=== PATIENT | female | born 1995 | race Caucasian/White ===

== ENCOUNTER 2018-05-08 22:15 | Emergency (ER) | payer BC ==
[2018-05-09] MEDS ORDERED: ACETAMINOPHEN 325 MG TABLET PO ONE (01:01)
[2018-05-09 01:21] LABS: ABSOLUTE BASOPHILS # (AUTO) 0.1 10^3/uL (0.0-0.2); ABSOLUTE EOSINOPHILS # (AUTO) 0.1 10^3/uL (0.0-0.6); ABSOLUTE LYMPHOCYTES (AUTO) 1.4 10^3/uL (0.5-4.7); EOSINOPHILS % (AUTO) 0.6 % (0-6); HEMATOCRIT 28.5 % (36.0-47.0); HEMOGLOBIN 9.9 g/dL (12.0-15.5); LYMPHOCYTES % (AUTO) 11.9 % (13-45); MEAN CORPUSCULAR HEMOGLOBIN 32.6 pg (27.0-33.4); MEAN CORPUSCULAR HGB CONC 34.7 g/dL (32.0-36.0); MEAN CORPUSCULAR VOLUME 94 fl (80-97); MONOCYTES % (AUTO) 8.4 % (3-13); PLATELET COUNT 199 10^3/uL (150-450); RED BLOOD COUNT 3.04 10^6/uL (3.72-5.28); RED CELL DISTRIBUTION WIDTH 14.1 % (11.5-14.0); SEGMENTED NEUTROPHILS % (AUTO) 78.1 % (42-78); TOTAL CELLS COUNTED % (AUTO) 100 %; WHITE BLOOD COUNT 11.5 10^3/uL (4.0-10.5)
--- NOTE | 2018-05-09 01:32 | ER Document Report ---
ED General - General Chief Complaint: Rib Pain Stated Complaint: SHORTNESS OF BREATH Time Seen by Provider: 05/09/18 00:42 Primary Care Provider: ARYA VIERA MD [Primary Care Provider] - Follow up as needed Notes: Patient is a 22-year-old female, at 30 weeks gestation, that comes to the emergency department for chief complaint of left-sided rib pain. She states that this is been present for about 3 days, has not resolved, is worse with deep breath and with leaning forward/sitting up. Denies that this is worse with movement of the left arm. Denies shortness of breath, fever/chills, nausea/vomiting. She denies trauma to the area. She denies any daily medications or diagnosed medical problems. [facility] is [facility] with [facility]. TRAVEL OUTSIDE OF THE [place] IN LAST 30 DAYS: No - Related Data Allergies/Adverse Reactions: No Known Allergies Allergy (Unverified 05/08/18 22:24) Past Medical History - General Information source: Patient - Social History Smoking Status: Never Smoker Frequency of alcohol use: None Drug Abuse: None Lives with: Family Family History: Reviewed & Not Pertinent - Medical History Medical History: Negative Surgical Hx: Negative - Immunizations Immunizations up to date: Yes Hx Diphtheria, Pertussis, Tetanus Vaccination: Yes Review of Systems - Review of Systems Constitutional: No symptoms reported EENT: No symptoms reported Cardiovascular: No symptoms reported Respiratory: See HPI Gastrointestinal: No symptoms reported Genitourinary: No symptoms reported Female Genitourinary: No symptoms reported Musculoskeletal: See HPI Skin: No symptoms reported Hematologic/Lymphatic: No symptoms reported Neurological/Psychological: No symptoms reported Physical Exam - Vital signs Vitals: Temp Pulse Resp BP Pulse Ox 98.4 F 102 H 18 114/65 99 05/08/18 22:53 05/08/18 22:53 05/08/18 22:53 05/08/18 22:53 05/08/18 22:53 - Notes Notes: GENERAL: Alert, interacts well. No acute distress. HEAD: Normocephalic, atraumatic. EYES: Pupils equal, round, and reactive to light. Extraocular movements intact. ENT: Oral mucosa moist, tongue midline. Oropharynx unremarkable. Airway patent. Nares patent, no nasal septal hematoma, TM's intact. NECK: Full range of motion. Supple. Trachea midline. LUNGS: Clear to auscultation bilaterally, no wheezes, rales, or rhonchi. No respiratory distress. There is tenderness to palpation over the left lower rib area, this is reproducible. No erythema, ecchymosis, swelling, crepitus over the area. Tenderness is very mild. HEART: Regular rate and rhythm. No murmur ABDOMEN: Borderline minimal tenderness in the left upper quadrant on palpation. Gravid abdomen. Mid to lower abdomen completely nontender and benign. Non- distended. Bowel sounds present in all 4 quadrants. GENITOURINARY: Deferred EXTREMITIES: Moves all 4 extremities spontaneously. No edema, normal radial and dorsalis pedis pulses bilaterally. No cyanosis. BACK: no cervical, thoracic, lumbar midline tenderness. No saddle anesthesia, normal distal neurovascular exam. NEUROLOGICAL: Alert and oriented x3. Normal speech. [cranial nerves II through XII grossly intact]. PSYCH: Normal affect, normal mood. SKIN: Warm, dry, normal turgor. No rashes or lesions noted. Course - Re-evaluation Re-evalutation: Patient has some pain with palpation of the left lower ribs which is mild but reproducible, she also has some pain just under the rib in the left upper quadrant. Chemistry performed including lipase but this was unremarkable. X- ray was performed but this was also unremarkable. CBC shows borderline leukocytosis, some anemia, patient states the anemia is not new. Leukocytosis nonspecific because patient does not exhibit any infectious etiology. Vital signs unremarkable, she is not tachycardic on my exam. Because of her status, location of pain, I did discuss possible blood clot and even CTA, however after discussion this was deferred. This is because she does not have shortness of breath, she was sleeping and easily aroused on reexamination, she is not tachycardic, she is not a smoker, she has no lower extremity swelling, and she does not want the radiation. I feel this is appropriate, based on her physical exam this appears to be partially muscular, possibly also gastritis. Low suspicion of pulmonary embolism. Discussed in details and return precautions at length with patient and significant other. They state satisfaction and agreement. Stable at time of discharge. - Vital Signs Vital signs: Temp Pulse Resp BP Pulse Ox 98.3 F 98 17 103/55 L 100 05/09/18 03:25 05/09/18 03:25 05/09/18 03:25 05/09/18 03:25 05/09/18 03:25 - Laboratory Result Diagrams: 05/09/18 01:10 05/09/18 01:10 Laboratory results interpreted by me: 05/09/18 05/09/18 01:10 01:10 WBC 11.5 H RBC 3.04 L Hgb 9.9 L Hct 28.5 L RDW 14.1 H Seg Neutrophils % 78.1 H Lymphocytes % 11.9 L Absolute Neutrophils 9.0 H Sodium 134.9 L BUN 5 L Creatinine 0.36 L Albumin 3.4 L Discharge - Discharge Clinical Impression: Rib pain on left side, Left upper quadrant pain Condition: Stable Disposition: HOME, SELF-CARE Additional Instructions: Your x-ray and laboratory workup are reassuring. It appears to be some soreness along the muscles in between your ribs, could also be some inflammation of the upper gastrointestinal tract, I recommend that you apply heat over the painful area of your ribs several times a day, take the famotidine as prescribed, avoid heavy lifting and twisting. Follow-up with primary care. Return if you worsen including difficulty breathing, passing out, vomiting, severe worsening pain, fever, or any other concerning or worsening symptoms. Prescriptions: Famotidine [Pepcid 20 mg Tablet] 20 mg PO BID #12 tablet Referrals: ARYA VIERA MD [Primary Care Provider] - Follow up as needed
[2018-05-09 01:38] LABS: ALANINE AMINOTRANSFERASE 21 U/L (9-52); ALBUMIN 3.4 g/dL (3.5-5.0); ALKALINE PHOSPHATASE 80 U/L (38-126); ANION GAP 7 (5-19); ASPARTATE AMINO TRANSFERASE 19 U/L (14-36); BILIRUBIN,TOTAL 0.4 mg/dL (0.2-1.3); BLOOD UREA NITROGEN 5 mg/dL (7-20); CARBON DIOXIDE 23 mmol/L (22-30); CHLORIDE 105 mmol/L (98-107); GLUCOSE 82 mg/dL (75-110); LIPASE 28.3 U/L (23-300); POTASSIUM 3.6 mmol/L (3.6-5.0); SODIUM 134.9 mmol/L (137-145); TOTAL PROTEIN 6.3 g/dL (6.3-8.2)
--- NOTE | 2018-05-09 02:01 | RADIOLOGY REPORT (SQ) ---
EXAM DESCRIPTION: XR CHEST 2 VIEWS COMPLETED DATE/TME: 05/09/2018 01:00 CLINICAL HISTORY: 22 years, Female, left lower rib pain (use shield) Comparison: None FINDINGS: No focal lung consolidation. No pleural effusion. No pneumothorax. Cardiac and mediastinal silhouette is unremarkable. No acute osseous abnormality. Soft tissues are unremarkable. IMPRESSION: No acute findings. No focal lung consolidation.
[2018-05-09] MEDS ORDERED: FAMOTIDINE 20 MG TABLET PO ONE (02:58)
[2018-05-09 03:25] VITALS: BP 103/55
== END 2018-05-09 03:33 | disposition home or self-care (01) ==
LOC: ER 22:15
DX: R07.81 Pleurodynia (principal); R10.12 Left upper quadrant pain; R06.02 Shortness of breath
CPT/HCPCS: 36415; 71046; 80053; 83690; 85025; 99283

== ENCOUNTER 2018-07-24 01:01 | Inpatient (IN) | payer BC, OTHER ==
[2018-07-24] MEDS ORDERED: DINOPROSTONE 10 MG VAGINAL INSERT.SR PV PRN (01:43)
[2018-07-24] MEDS ORDERED: RINGERS SOLUTION,LACTATED 1,000 ML IV PRN (01:43)
[2018-07-24] MEDS ORDERED: OXYTOCIN/NORMAL SALINE 20 UNIT/1,000 ML RTUINJ IV PRN (01:43)
[2018-07-24] MEDS ORDERED: RINGERS SOLUTION,LACTATED 300 ML IV ONE (01:43)
[2018-07-24] MEDS ORDERED: PENICILLIN G POTASSIUM 5,000,000 UNIT in DEXTROSE 5%-WATER 100 ML IV ONE (01:45)
[2018-07-24 02:06] LABS: APPEARANCE,URINE SLIGHTLY-CLOUDY; BILIRUBIN,URINE NEGATIVE (NEGATIVE); COLOR,URINE YELLOW; GLUCOSE, URINE NEGATIVE (NEGATIVE); KETONES,URINE NEGATIVE (NEGATIVE); LEUKOCYTE ESTERASE,URINE TRACE (NEGATIVE); NITRITE,URINE NEGATIVE (NEGATIVE); PROTEIN,URINE NEGATIVE (NEGATIVE); URINE SPECIFIC GRAVITY 1.023; UROBILINOGEN,URINE NEGATIVE mg/dL (<2.0)
[2018-07-24] MEDS ORDERED: DINOPROSTONE 10 MG VAGINAL INSERT.SR ONE (02:06)
[2018-07-24 02:07] LABS: ABSOLUTE EOSINOPHILS # (AUTO) 0.1 10^3/uL (0.0-0.6); ABSOLUTE LYMPHOCYTES (AUTO) 1.5 10^3/uL (0.5-4.7); ABSOLUTE MONOCYTES (AUTO) 0.9 10^3/uL (0.1-1.4); ABSOLUTE NEUT (AUTO) 6.5 10^3/uL (1.7-8.2); BASOPHILS % (AUTO) 0.5 % (0-2); EOSINOPHILS % (AUTO) 0.9 % (0-6); HEMATOCRIT 30.2 % (36.0-47.0); HEMOGLOBIN 10.1 g/dL (12.0-15.5); LYMPHOCYTES % (AUTO) 16.4 % (13-45); MEAN CORPUSCULAR HEMOGLOBIN 28.5 pg (27.0-33.4); MEAN CORPUSCULAR HGB CONC 33.4 g/dL (32.0-36.0); MEAN CORPUSCULAR VOLUME 85 fl (80-97); MONOCYTES % (AUTO) 10.4 % (3-13); PLATELET COUNT 211 10^3/uL (150-450); RED BLOOD COUNT 3.54 10^6/uL (3.72-5.28); RED CELL DISTRIBUTION WIDTH 16.5 % (11.5-14.0); SEGMENTED NEUTROPHILS % (AUTO) 71.8 % (42-78); TOTAL CELLS COUNTED % (AUTO) 100 %
[2018-07-24 02:22] LABS: URINE AMPHETAMINES SCREEN NEGATIVE; URINE BARBITURATES SCREEN NEGATIVE; URINE BENZODIAZEPINES SCREEN NEGATIVE; URINE COCAINE SCREEN NEGATIVE; URINE MARIJUANA (THC) SCREEN NEGATIVE; URINE METHADONE SCREEN NEGATIVE; URINE PHENCYCLIDINE SCREEN NEGATIVE
[2018-07-24] MEDS ORDERED: PENICILLIN G POTASSIUM 2,500,000 UNIT in DEXTROSE 5%-WATER 50 ML IV SCH (05:47)
[2018-07-24] MEDS ORDERED: LIDOCAINE 1% INJ-PF (10 MG/ML) 30 ML SDV ONE (06:17)
[2018-07-24] MEDS ORDERED: MISOPROSTOL 0.2 MG TABLET ONE (06:17)
[2018-07-24] MEDS ORDERED: OXYTOCIN 10 UNIT/ML VIAL ONE (06:17)
[2018-07-24] MEDS ORDERED: OXYTOCIN/NORMAL SALINE 20 UNIT/1,000 ML RTUINJ ONE ×2 (06:17→14:48)
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
[2018-07-24] MEDS ORDERED: BUPIVACAINE HCL 0.25 % INJ/PF (2.5 MG/1 ML) 30 ML VIAL ONE (16:08)
[2018-07-24] MEDS ORDERED: EPHEDRINE SULFATE INJ 50 MG/1 ML AMPULE ONE (16:08)
[2018-07-24] MEDS ORDERED: FENTANYL/BUPIVACAINE/NS/PF 300 MCG/150 ML RTUINJ EPI ONE (16:08)
[2018-07-24] MEDS ORDERED: PENICILLIN G-K 5 MILLION UNIT VIAL ONE ×2 (18:24→23:24)
[2018-07-24] MEDS ORDERED: DIPHENHYDRAMINE HCL 50 MG/ML VIAL IV ONE (20:10)
[2018-07-24] MEDS ORDERED: DIPHENHYDRAMINE HCL 50 MG/ML VIAL ONE (20:12)
[2018-07-24] MEDS ORDERED: ACETAMINOPHEN 325 MG TABLET ONE (23:23)
[2018-07-25] MEDS ORDERED: DIBUCAINE 1% OINTMENT 56 GM TP PRN (04:15)
[2018-07-25] MEDS ORDERED: DIPH/PERTUSS(ACELL)/TETANUS VAC/PF 0.5 ML SYR (>=10YO) IM PRN (04:15)
[2018-07-25] MEDS ORDERED: GLYCERIN/WITCH HAZEL LEAF 1 EACH MED..WIPE TP PRN (04:15)
[2018-07-25] MEDS ORDERED: DIPHENHYDRAMINE HCL 25 MG CAPSULE PO PRN (04:15)
[2018-07-25] MEDS ORDERED: MAGNESIUM HYDROXIDE SUSP 30 ML UDCUP PO PRN (04:15)
[2018-07-25] MEDS ORDERED: ACETAMINOPHEN 650 MG SUPP.RECT PR PRN (04:15)
[2018-07-25] MEDS ORDERED: MEASLES,MUMPS&RUBELLA VACC/PF 0.5 ML VIAL SUBCUT PRN (04:15)
[2018-07-25] MEDS ORDERED: ZOLPIDEM TARTRATE 5 MG TABLET PO PRN (04:15)
[2018-07-25] MEDS ORDERED: PROMETHAZINE HCL INJ 25 MG/1 ML VIAL IV PRN (04:15)
[2018-07-25] MEDS ORDERED: OXYTOCIN/NORMAL SALINE 20 UNIT/1,000 ML RTUINJ IV PRN (04:15)
[2018-07-25] MEDS ORDERED: PROMETHAZINE HCL 25 MG TABLET PO PRN (04:15)
[2018-07-25] MEDS ORDERED: NA PHOS,M-B/NA PHOS,DI-BA (ADULT) 133 ML ENEMA PR PRN (04:15)
[2018-07-25] MEDS ORDERED: BENZOCAINE/MENTHOL AEROSOL SPRAY 56 ML TOP PRN (04:15)
[2018-07-25] MEDS ORDERED: PROMETHAZINE HCL 25 MG SUPP.RECT PR PRN (04:15)
[2018-07-25] MEDS ORDERED: PSEUDOEPHEDRINE HCL 30 MG TABLET PO PRN (04:15)
--- NOTE | 2018-07-25 04:55 | Warning Signs in Babies ---
VOD Warning Signs Datetime Report Generated by [facility]: 07/25/2018 04:54 VOD#608 -Warning Signs in Babies: Needs to be viewed. (07/24/2018 00:41:Dahiana Ohara RN)
--- NOTE | 2018-07-25 04:55 | Delivery Summary ---
Del Sum A-C Datetime Report Generated by CPN: 07/25/2018 04:54 DELIVERY PERSONNEL DELIVERY PERSONNEL: [id number] Delivery Doctor:: Hosea Jacome MD Labor and Delivery Nurse:: Dahiana Ohara RNadvertising inserter Nurse:: Ann Cole RN Nursery Nurse:: Salena Malave RN Environmental Service Aide/TRAFFIC ENGINEERING DIRECTOR: Milagros Green, ST MATERNAL INFORMATION Delivery Anesthesia: Epidural Medications After Delivery: Pitocin Bolus-Please Comment Maternal Complications: None LABOR SUMMARY EDC: 07/17/2018 00:00 No. Babies in Womb: 1 Attempted: No Labor Anesthesia: Epidural LABOR INFORMATION Reason for Induction: Macrosomia; Polyhydramnios Onset of Labor: 07/24/2018 15:30 Complete Dilatation: 07/24/2018 22:09 Cervical Ripening Agents: Cervidil Oxytocin: Induction Group B Beta Strep: positive Antibiotics # of Doses: 2 Antibiotics Time of Last Dose: 233 Name of Antibiotic Given: Penicillin Steroids Given: None Reason Steroids Not Administered: Not Applicable MEMBRANES Membranes Rupture Method: Spontaneous Rupture of Membranes: 07/24/2018 12:30 Length of Rupture (hr): 15.50 Amniotic Fluid Color: Clear Amniotic Fluid Amount: Copious Amniotic Fluid Odor: Normal STAGES OF LABOR Stage 1 hr: 6 Stage 1 min: 39 Stage 2 hr: 5 Stage 2 min: 51 Stage 3 hr: 0 Stage 3 min: 6 Total Time in Labor hr: 12 Total Time in Labor min: 36 VAGINAL DELIVERY Episiotomy: None Laceration #1: Perineal Laceration Extension #1: First Degree Laceration Repair: Yes Laceration Repair Note: 2-0 vicryl BABY A INFORMATION Delivery Date/Time: 07/25/2018 04:00 Method of Delivery: Vaginal Born in Route : No : N/A Forceps: N/A Vacuum Extraction: N/A Shoulder Dystocia : No PRESENTATION/POSITION BABY A Presentation: Cephalic Cephalic Presentation: Vertex Vertex Position: Left Occipital Anterior Breech Presentation: N/A PLACENTA INFORMATION BABY A Placenta Delivery Time : 07/25/2018 04:06 Placenta Method of Delivery: Spontaneous Placenta Status: Delivered SCORES BABY A Heart Rate 1 min: >100 bpm Resp Effort 1 min: Good Cry Reflex Irritability 1 min: Cough or Sneeze or Pulls Away Muscle Tone 1 min: Active Motion Color 1 min: Body [place], Extremities Blue SCORE 1 MIN: 9 Heart Rate 5 min: >100 bpm Resp Effort 5 min: Good Cry Reflex Irritability 5 min: Cough or Sneeze or Pulls Away Muscle Tone 5 min: Active Motion Color 5 min: Body [place], Extremities Blue SCORE 5 MIN: 9 INFANT INFORMATION BABY A Gestational Age at Delivery: 41.1 Gestational Status: Late Term- 41- 41.6 Weeks Infant Outcome : Liveborn Condition : Stable Infant Sex: Male IDENTIFICATION BABY A Infant Verification Date/Time: 07/25/2018 04:09 ID Band Number: [id number] Mother's Name Verified: Yes RN Verifying Infant: DevonHarlan RN Additional Verifying Personnel: Edgard Sanders ST WEIGHT/LENGTH BABY A Birthweight (gm): 4316 Weight (lb): 9 Weight (oz): 8 Length (in): 22.00 Length (cm): 55.88 CORD INFORMATION BABY A No. Cord Vessels: 3 Nuchal Cord : Around Neck x1, Loose Cord Blood Taken: Yes-For Storage (Mom's Blood type +) ASSESSMENT BABY A Infant Complications: None Physical Findings at Delivery: Within Normal Limits Skin to Skin: Yes Transferred To: Remains with Mother BABY B INFORMATION : N/A SIGNATURES Signature: with User ID: [email or web address]
[2018-07-25] MEDS: FAMOTIDINE 20 MG TABLET PO SCH ×2 (09:26→21:49)
[2018-07-25] MEDS: DOCUSATE SODIUM 100 MG CAPSULE PO SCH ×2 (09:26→17:34)
[2018-07-25] MEDS: SENNOSIDES/DOCUSATE 8.6-50 MG 1 EACH TABLET PO SCH (09:26)
[2018-07-25] MEDS: IBUPROFEN 800 MG TABLET PO SCH ×3 (09:26→21:50)
[2018-07-25] MEDS: PRENATAL VITAMIN W DHA CAPSULE PO SCH (09:26)
[2018-07-25] MEDS: FERROUS SULFATE 325 MG TABLET PO SCH ×2 (09:26→17:34)
[2018-07-25] MEDS: ACETAMINOPHEN WITH CODEINE #3 TABLET PO PRN (17:35)
[2018-07-26 06:23] LABS: HEMATOCRIT 27.1 % (36.0-47.0); HEMOGLOBIN 9.1 g/dL (12.0-15.5); MEAN CORPUSCULAR HEMOGLOBIN 28.5 pg (27.0-33.4); MEAN CORPUSCULAR HGB CONC 33.4 g/dL (32.0-36.0); MEAN CORPUSCULAR VOLUME 85 fl (80-97); PLATELET COUNT 170 10^3/uL (150-450); RED BLOOD COUNT 3.18 10^6/uL (3.72-5.28); RED CELL DISTRIBUTION WIDTH 16.1 % (11.5-14.0); WHITE BLOOD COUNT 12.6 10^3/uL (4.0-10.5)
[2018-07-26] MEDS: IBUPROFEN 800 MG TABLET PO SCH ×3 (06:43→21:26)
[2018-07-26] MEDS: FERROUS SULFATE 325 MG TABLET PO SCH ×2 (09:38→17:40)
[2018-07-26] MEDS: FAMOTIDINE 20 MG TABLET PO SCH ×2 (09:38→21:26)
[2018-07-26] MEDS: SENNOSIDES/DOCUSATE 8.6-50 MG 1 EACH TABLET PO SCH (09:38)
[2018-07-26] MEDS: DOCUSATE SODIUM 100 MG CAPSULE PO SCH ×2 (09:38→17:40)
[2018-07-26] MEDS: PRENATAL VITAMIN W DHA CAPSULE PO SCH (09:38)
--- NOTE | 2018-07-26 09:56 | PDOC PROGRESS REPORT ---
Subjective-OB Progress Note for:: 07/26/18 Subjective: reports bleeding slowing, pain controlled with current meds, denies needs Physical Exam (OB) Vital Signs: Temp Pulse Resp BP Pulse Ox 97.4 F 71 18 134/84 H 98 07/26/18 08:50 07/26/18 08:50 07/26/18 08:50 07/26/18 08:50 07/26/18 08:50 - Abdomen Description: Soft, Round Hernia Present: No Fundal Description: Firm, Midline Fundal Height: u/u - u/2 - Abdominal Distension: No distension Tenderness: Nontender - Extremities Lower extremities: Nir's sign - neg Calf: Normal, Nontender Objective-Diagnostic Laboratory: 07/26/18 05:54 07/26/18 05:54 WBC 12.6 H RBC 3.18 L Hgb 9.1 L Hct 27.1 L MCV 85 MCH 28.5 MCHC 33.4 RDW 16.1 H Plt Count 170 Assessment and Plan(PN) - Assessment and Plan (1) Normal vaginal delivery Is this a current diagnosis for this admission?: Yes (2) Obstetrical laceration, first degree Is this a current diagnosis for this admission?: Yes - Time Spent with Patient Time with patient: Less than 15 minutes Medications reviewed and adjusted accordingly: Yes - Disposition Anticipated Discharge: Home Within: within 24 hours
[2018-07-26] MEDS: ACETAMINOPHEN WITH CODEINE #3 TABLET PO PRN (23:32)
[2018-07-27] MEDS: IBUPROFEN 800 MG TABLET PO SCH (05:33)
[2018-07-27] MEDS: DOCUSATE SODIUM 100 MG CAPSULE PO SCH (10:28)
[2018-07-27] MEDS: FERROUS SULFATE 325 MG TABLET PO SCH (10:28)
[2018-07-27] MEDS: SENNOSIDES/DOCUSATE 8.6-50 MG 1 EACH TABLET PO SCH (10:28)
[2018-07-27] MEDS: FAMOTIDINE 20 MG TABLET PO SCH (10:28)
[2018-07-27] MEDS: PRENATAL VITAMIN W DHA CAPSULE PO SCH (10:28)
--- NOTE | 2018-07-27 10:37 | PDOC DISCHARGE SUMMARY ---
Final Diagnosis Discharge Date: 07/27/18 - Final Diagnosis (1) Normal vaginal delivery Is this a current diagnosis for this admission?: Yes (2) Obstetrical laceration, first degree Is this a current diagnosis for this admission?: Yes Discharge Data - Discharge Medication Prescriptions: Ibuprofen [Motrin 800 mg Tablet] 800 mg PO Q8HP PRN #60 tablet PRN Reason: Home Medications: 95/Iron Fum/Folic/Dha [ + Dha Combo Pack] 1 tab PO DAILY 07/24/18 Ferrous Sulfate [Feosol 325 mg Tablet] 325 mg PO BID tablet 07/27/18 Ibuprofen [Motrin 800 mg Tablet] 800 mg PO Q8HP PRN #60 tablet 07/27/18 Reason(s) for Admission: Induction of Labor Procedures: NST Intrapartum Procedure(s): Spontaneous Vaginal Delivery Complication(s): Laceration-Perineal Laceration-Degree: 1st - Diagnosis Test Laboratory: Temp Pulse Resp BP Pulse Ox 97.5 F 80 20 114/82 99 07/27/18 08:32 07/27/18 08:32 07/27/18 08:32 07/27/18 08:32 07/27/18 07:35 07/24/18 07/24/18 07/26/18 01:55 01:55 05:54 RBC 3.54 L 3.18 L Hgb 10.1 L 9.1 L Hct 30.2 L 27.1 L Urine Opiates Screen NEGATIVE - Discharge information/Instructions Discharge Activity: Balance Activity w/Rest, Pelvic Rest Discharge Diet: Regular Disposition: HOME, SELF-CARE Follow up with: [facility] in: 4, Weeks
[2018-07-27 13:51] VITALS: BP 134/84
== END 2018-07-27 14:30 | disposition home or self-care (01) | DRG 807 ==
LOC: LR 01:01 → 2S 07-25 06:23
PROVIDERS: ADMIT Obstetrics & Gynecology; ATTEND Obstetrics & Gynecology
PROC: 3E033VJ Introduction of Other Hormone into Peripheral Vein, Percutaneous Approach (ICD-10-PCS; 2018-07-24)
PROC: 4A1HXCZ Monitoring of Products of Conception, Cardiac Rate, External Approach (ICD-10-PCS; 2018-07-24)
PROC: 10E0XZZ Delivery of Products of Conception, External Approach (ICD-10-PCS; principal; 2018-07-25)
PROC: 0HQ9XZZ Repair Perineum Skin, External Approach (ICD-10-PCS; 2018-07-25)
DX: O48.0 Post-term pregnancy (principal); Z37.0 Single live birth; O70.0 First degree perineal laceration during delivery; O36.63X0 Maternal care for excessive fetal growth, third trimester, not applicable or unspecified; O40.3XX0 Polyhydramnios, third trimester, not applicable or unspecified; O69.81X0 Labor and delivery complicated by cord around neck, without compression, not applicable or unspecified; O99.824 Streptococcus B carrier state complicating childbirth; Z3A.41 41 weeks gestation of pregnancy
CPT/HCPCS: 36415; 80307; 81005; 85025; 85027; 86592; 86850; 86900; 86901; 94760; J1200; J2540; J2590; J3010; J3490; J7060